=== PATIENT | female | born 1955 | race Caucasian/White ===

== ENCOUNTER → 2017-01-31 | Outpatient (CLI) | payer OTHER ==
[~2017-01-31] MED LIST: CHOL100027 PO; CLC100X PO; CLON0.2T11 PO; FISHOIL PO; METF1TAB53 PO; MINO1TAB PO; SIMV40TA4 PO; SITA1TAB27 PO; TELM80TA4 PO; VERA1TAB60 PO; WLC625 PO
--- NOTE | 2017-01-31 16:45 | MAMMOGRAPHY REPORT ---
BILATERAL DIGITAL SCREENING MAMMOGRAM TOMOSYNTHESIS WITH CAD: 01/31/2017 CLINICAL HISTORY: Routine screening. Patient has no complaints. TECHNIQUE: Bilateral breasttomosynthesis in addition to standard 2D mammography was performed. Curr ent study was also evaluated with a Computer Aided Detection (CAD) system. COMPARISON: Comparison is made to exams dated: 01/31/2016 mammogram, 01/27/2015 mammogram, 01/26/2014 mammogram, 02/07/2013 ultrasound, 02/07/2013 mammogram, and 01/23/2013 mammogram - [facility] [address] BREAST COMPOSITION: There are scattered areas of fibroglandular density in both breasts. FINDINGS: There is a stable intramammary lymph node in the upper outer far posterior right breast. A few stable benign rim calcifications in the right breast. Stable asymmetry in the medial left br east. No new suspicious mass, architectural distortion or cluster of microcalcifications is seen. IMPRESSION: ACR BI-RADS CATEGORY 1: NEGATIVE There is no mammographic evidence of malignancy. A 1 year screening mammogram is recommended. The p atient will receive written notification of the results. Approximately 10% of breast cancers are not detected with mammography. A negative mammographic repor t should not delay biopsy if a clinically suggestive mass is present. Lynn Millard M.D. ay/:01/31/2017 15:45:51 [employer] [place]: Aby Daily, [facility] letter sent: Normal 1/2 BI-RADS Code: ACR BI-RADS Category 1: Negative
== END | disposition home or self-care (01) ==
LOC: C.MAMM 14:16
PROVIDERS: ATTEND Internal Medicine Geriatric Medicine
DX: Z12.31 Encounter for screening mammogram for malignant neoplasm of breast (principal)

== ENCOUNTER → 2017-05-21 | Outpatient (CLI) | payer OTHER ==
[2017-05-21 10:03] LABS: ALT/SGPT 65 U/L (12-78); BLOOD UREA NITROGEN 16 mg/dl (7-18); BUN/CREATININE RATIO 20.7 (10-20); CALCIUM 8.9 mg/dl (8.5-10.1); CARBON DIOXIDE 29 mmol/L (21-32); CHLORIDE 104 mmol/L (98-107); CHOLESTEROL 181 mg/dl (0-200); CREATININE 0.75 mg/dl (0.60-1.20); ESTIMATED AVERAGE GLUCOSE 137 mg/dl; GLUCOSE 118 mg/dl (70-99); HA1C FLAG Normal (Normal); SODIUM 141 mmol/L (136-145)
[2017-05-21 10:14] LABS: ALB/GLOB RATIO 1.3 (0.9-2); ALKALINE PHOSPHATASE 73 U/L (45-117); AST/SGOT 26 U/L (15-37); CHOLESTEROL/HDL RATIO 4.5; HDL CHOLESTEROL 40 mg/dl; LDL CHOLESTEROL CALCULATED 99 mg/dl; THYROID STIMULATING HORMONE 0.865 uIu/ml (0.300-4.500); TRIGLYCERIDES 210 mg/dl (0-150); VERY LOW DENSITY LIPOPROT CALC 42 mg/dl
== END | disposition home or self-care (01) ==
LOC: C.LAB 06:55
PROVIDERS: ATTEND Internal Medicine Geriatric Medicine
DX: I10 Essential (primary) hypertension (principal); E78.5 Hyperlipidemia, unspecified; E11.9 Type 2 diabetes mellitus without complications; K76.0 Fatty (change of) liver, not elsewhere classified; E21.3 Hyperparathyroidism, unspecified; M85.80 Other specified disorders of bone density and structure, unspecified site

== ENCOUNTER → 2017-12-10 | Outpatient (CLI) | payer OTHER ==
[~2017-12-10] MED LIST changes: -TELM80TA4 PO; +TELM80TA6 PO
[2017-12-10 10:01] LABS: HEMOGLOBIN A1C 6.2 % (4.5-5.6)
[2017-12-10 10:09] LABS: ALBUMIN 3.8 gm/dl (3.4-5.0); BLOOD UREA NITROGEN 18 mg/dl (7-18); CALCIUM 8.9 mg/dl (8.5-10.1); CARBON DIOXIDE 30 mmol/L (21-32); CREATININE 0.79 mg/dl (0.60-1.20); GLUCOSE 128 mg/dl (70-99); POTASSIUM 4.1 mmol/L (3.5-5.1); SODIUM 139 mmol/L (136-145)
[2017-12-10 10:12] LABS: ALKALINE PHOSPHATASE 80 U/L (45-117); ALT/SGPT 68 U/L (12-78); AST/SGOT 21 U/L (15-37); TOTAL PROTEIN 6.7 gm/dl (6.4-8.2)
[2017-12-10 10:19] LABS: CREATININE RANDOM URINE 33.6 mg/dl
== END | disposition home or self-care (01) ==
LOC: C.LAB 08:12
PROVIDERS: ATTEND Internal Medicine Geriatric Medicine
DX: I10 Essential (primary) hypertension (principal); E11.9 Type 2 diabetes mellitus without complications; E78.5 Hyperlipidemia, unspecified; E55.9 Vitamin D deficiency, unspecified; Z79.4 Long term (current) use of insulin; E04.2 Nontoxic multinodular goiter; K76.0 Fatty (change of) liver, not elsewhere classified; M85.80 Other specified disorders of bone density and structure, unspecified site

== ENCOUNTER → 2018-02-01 | Outpatient (CLI) | payer OTHER ==
--- NOTE | 2018-02-04 12:41 | MAMMOGRAPHY REPORT ---
BILATERAL DIGITAL SCREENING MAMMOGRAM TOMOSYNTHESIS WITH CAD: 02/01/2018 CLINICAL HISTORY: Routine screening. Patient has no complaints. TECHNIQUE: Breast tomosynthesis in addition to standard 2D mammography was performed. Current study was also evaluated with a Computer Aided Detection (CAD) system. COMPARISON: Comparison is made to exams dated: 01/31/2017 mammogram, 01/31/2016 mammogram, 01/27/2015 m ammogram, 01/26/2014 mammogram, 02/07/2013 mammogram, and 01/23/2013 mammogram - [facility]. BREAST COMPOSITION: There are scattered areas of fibroglandular density in both breasts. FINDINGS: No suspicious masses, calcifications, or areas of architectural distortion are noted in ei ther breast. There has been no significant interval change compared to prior exams. IMPRESSION: ACR BI-RADS CATEGORY 1: NEGATIVE There is no mammographic evidence of malignancy. A 1 year screening mammogram is recommended. The pa tient will receive written notification of the results. Approximately 10% of breast cancers are not detected with mammography. A negative mammographic report should not delay biopsy if a clinically suggestive mass is present. Julia Andersen M.D. ah/:02/01/2018 12:21:01 [employer]: Aby LAWRENCE(Chris)(M), [facility] letter sent: Normal 1/2 BI-RADS Code: ACR BI-RADS Category 1: Negative
== END | disposition home or self-care (01) ==
LOC: C.MAMM 08:57
PROVIDERS: ATTEND Internal Medicine Geriatric Medicine
DX: Z12.31 Encounter for screening mammogram for malignant neoplasm of breast (principal)